=== PATIENT | female | born 1935 | race Caucasian/White ===

== ENCOUNTER 2017-10-30 09:07 | Day surgery (SDC) | payer MEDICARE, OTHER ==
[~2017-10-30 09:07] MED LIST: PHENYLEPHRINE HCL 10 % OPHTH. SOL 5ML OS
[2017-10-30] MEDS: PHENYLEPHRINE 2.5% OPHTH SOL 2ML OS (10:08)
[2017-10-30] MEDS: TROPICAMIDE 1% OPHTH SOLN 2ML OS (10:09)
[2017-10-30] MEDS: LIDOCAINE 3.5 % 1ML OPHTH TOPICAL GEL OU (10:09)
[2017-10-30] MEDS: CYCLOPENTOLATE 2% OPHTH SOLN 2ML BTL OS (10:09)
[2017-10-30] MEDS: OFLOXACIN 0.3 % (OCUFLOX) OPTH SOL 5ML OS (10:09)
[2017-10-30] MEDS: POVIDONE-IODINE 5% OPHTH PREP SOL 30ML As Ordered (11:14)
[2017-10-30] MEDS ORDERED: MIDAZOLAM INJ 2 MG/2 ML VIAL (J2250) As Ordered (11:19)
[2017-10-30] MEDS ORDERED: fentaNYL 100 MCG/2 ML INJECTION (J3010) As Ordered (11:19)
[2017-10-30] MEDS: LIDOCAINE 1% SDV 5 ML VIAL As Ordered (11:21)
[2017-10-30] MEDS: HEALON DUET (HEALON 10MG/ML 0.55ML & HEALON ENDOCOAT 30MG/ML 0.85ML) As Ordered (11:21)
[2017-10-30] MEDS: BSS with VANC/TOB/EPI for EYE CASES IR (11:21)
[2017-10-30] MEDS: MOXIFLOXACIN IN BSS 0.25MG/0.25ML INTRACAMERAL INJ (OR EYE ONLY)(J2280) As Ordered (11:22)
[2017-10-30] MEDS: TRIAMCINOLONE PRES FR 40 MG/ML 1ML(TRIESENCE)(OR EYE ONLY)(J3300 PER 1MG) As Ordered (11:22)
== END 2017-10-30 12:05 | disposition home or self-care (01) ==
LOC: M SDC 09:07
DX: H26.9 Unspecified cataract (principal); I10 Essential (primary) hypertension; J44.9 Chronic obstructive pulmonary disease, unspecified; K21.9 Gastro-esophageal reflux disease without esophagitis; Z79.899 Other long term (current) drug therapy; Z88.0 Allergy status to penicillin; Z88.2 Allergy status to sulfonamides
CPT/HCPCS: 66984

== ENCOUNTER → 2017-12-18 | Outpatient (CLI) | payer MEDICARE, OTHER | LOC: M SMT 09:24 | DX: J44.9 Chronic obstructive pulmonary disease, unspecified (principal) | CPT/HCPCS: 71046 ==

== ENCOUNTER → 2020-06-28 | Outpatient (CLI) | payer MEDICARE, OTHER ==
[~2020-06-28] MED LIST changes: +CARV3.12 PO; +E-Z-GAS II EFFERVESCENT PACKET (SODIUM BICARB./CITRIC ACID/SIMETHICONE) As Ordered ONE; +E-Z-HD 98% w/w 340GM SUSP BTL As Ordered ONE; +E-Z-PAQUE 96% w/w SUSP 176GM BTL As Ordered ONE; +FELO5TAB26 PO; +FLUT11IN PO; +FURO20TA2 PO; +MAGN400C2 PO; +OMEP40CA97 PO; -PHENYLEPHRINE HCL 10 % OPHTH. SOL 5ML OS; +POTA1TAB23 PO; +RANI300T PO; +SIMV20TA22 PO; +SPIR1CAP PO
--- NOTE | 2020-06-29 06:51 | REP ---
INDICATION: DYSPHAGIA. COMPARISON: None TECHNIQUE: This procedure was performed by Roma Sosa [facility], under the direct supervision of Dr. Melendez. Images were reviewed with Dr. Melendez prior to dictation. Liquid barium and gas producing crystals were given in the erect position, as well as liquid barium in the prone oblique position in order to perform a double contrast esophagram examination. FINDINGS: A single view PA chest x-ray is submitted as a .net architect film. The superior mediastinal structures are midline. The heart size is within normal limits. The lungs are clear. Ectatic aorta with vascular calcifications. The oral and pharyngeal stages of deglutition were unremarkable. Esophageal transport is prompt and efficient and there is no evidence of esophagitis, stricture, or mucosal ring. There is no evidence of a hiatal hernia. There was no gastroesophageal reflux noted . IMPRESSION: Unremarkable esophagram. 0.3 minutes of fluoroscopy time was utilized for this procedure. Some fluoroscopic images are performed with last image hold technology. These images require no additional radiation. <Electronically signed by Roma Sosa > 06/28/20 [id number] <Electronically signed by Brian Melendez > 06/29/20 [id number]
== END ==
LOC: M RAD 09:49
PROVIDERS: ATTEND Otolaryngology
DX: K21.9 Gastro-esophageal reflux disease without esophagitis (principal)

== ENCOUNTER → 2020-12-27 | Outpatient (CLI) | payer MEDICARE, OTHER ==
[~2020-12-27] MED LIST changes: -E-Z-GAS II EFFERVESCENT PACKET (SODIUM BICARB./CITRIC ACID/SIMETHICONE) As Ordered ONE; -E-Z-HD 98% w/w 340GM SUSP BTL As Ordered ONE; -E-Z-PAQUE 96% w/w SUSP 176GM BTL As Ordered ONE; +METO1TAB32 PO; +OMEP40CA4 PO; -OMEP40CA97 PO
== END ==
LOC: M LABSMTC 09:43
PROVIDERS: ATTEND Anesthesiology
DX: Z01.812 Encounter for preprocedural laboratory examination (principal); Z20.822 Contact with and (suspected) exposure to COVID-19

== ENCOUNTER 2020-12-31 10:54 | Day surgery (SDC) | payer MEDICARE, OTHER ==
[~2020-12-31] VITALS: Ht 157.5 cm; Wt 58.1 kg
[~2020-12-31 10:54] MED LIST changes: +NS 1,000 ML IV ONE
--- OUTSIDE RECORDS SUMMARY | 2020-12-31 11:01 | CCD | Continuity of Care Document ---
Author Author Frances HANCOCK M.D. Organization Unknown Address [address] [place] [address] Phone [phone] Care Team Providers Care Topline Beading Machine Tender Name Role Phone Ashwin Hancock M.D. AUTM [phone] Gastroenterology & Hepatology [facility] AUTM [phone] Neuro[facility] Schedule Resource Only AUTM [phone] [facility] Orthopedics AUTM [phone] [facility] AUTM [phone] [facility] ENT AUTM [phone] [facility] Gastroenterology AUTM [phone] Problems Active Problems Provider Date Diarrhea Ashwin Hancock MD Onset: 12/30/2020 Age-related osteoporosis without current pathological fracture Ashwin Hancock MD Onset: 11/02/2016 Adult health examination Ashwin Hancock MD Onset: 11/03/19 17 Chronic obstructive lung disease Ashwin Hancock MD Onset: 08/31/2016 Edema Ashwin Hancock MD Onset: 03/02/2016 Gastroesophageal reflux disease Ashwin Hancock MD Onset: 1 05/03/2015 Hyperlipidemia Ashwin Hancock MD Onset: 03/02/2016 Essential hypertension Ashwin Hancock MD Onset: 03/02/2016 Essential hypertension Onset: 09/13/2018 Social History Type Date Description Comments Sex Unknown Tobacco Use Start: Unknown End: Unknown Quit Tobacco Use Start: Unknown Never Smoked Cigars Tobacco Use Start: Unknown Never Smoked A Pipe Tobacco Use Start: Unknown Never Used Smokeless Tobacco ETOH Use Currently consumes alcohol 3 navjot es a week Tobacco Use Start: Unknown End: Unknown Patient is a former smoker Started: age 17 Quit: 1994 Recreational Drug Use Denies Drug Use Smoking Status Reviewed: 06/06/17 Patient is a former smoker St arted: age 17 Quit: 1994 Allergies and adverse reactions Active Allergies Criticality Reaction | Severity Comments Date NKFA Unable to assess criticality 05/31/2016 NKEA Unable to assess criticality 05/31/2016 Sulfa Antibiotics Unable to assess criticality 05/31/2016 Penicillin Unable to assess criticality 05/31/2016 Inactive Allergies NKDA Unable to assess criticality 05/31/2016 Medications Active Medications SIG Qnty Indications Ordering Provide r Date Metoprolol Succinate ER 25mg Tablets ER 24HR Take One Tablet By Mouth Every Day 90tabs I10 Ashwin Hancock MD 10/08/2018 Back Support/Dual Adjustment/Medium Misc use daily 1units S22.070D Ashwin Hancock MD 07/29/2018 Furosemide 20mg Tablets take one tablet by mouth every day 90tabs R60.9 Ashwin Hancock MD 05/31/2016 Proair HFA 108(90Base) mcg/Act Aer osol 1 puff q4 hrs prn. J44.9 Unknown J43.9 Flovent HFA 110mcg/Act Aerosol (Pulmonary) Unknown Felodipine ER 5mg Tablets ER 24HR Take One Tablet By Mouth Twice A Day 180tabs I10 Ashwin Hancock MD Omeprazole 40mg Capsules DR take one capsule by mouth every day 90caps K21.9 Ashwin Hancock MD 0 Medications Administered in Office Medication SIG Qnty Indications Ordering Provider Date Ketorolac (Toradol) Inj 30MG/ML Injection Ashwin Hancock MD 07/30/19 Ketorolac (Toradol) Inj 30MG/ML Injection Ashwin Hancock MD 07/23/19 Immunizations Description No Information Available Vital Signs Date Vital Result Comment 12/30/2020 8:59am BP Systolic 116 mmHg BP Diastolic 60 mmHg Heart Rate 82 /min Body Temperature 97.3 F Respiratory Rate 16 /min O2 % BldC Oximetry 94 % Weight 132.00 lb Weight 59.875 kg Height 64 inches 5'4" pt states BMI (Body Mass Index) 22.7 kg/m2 BSA (Body Surface Area) 1.64 m2 09/29/2020 9:23am BP Systolic 102 mmHg BP Diastolic 60 mmHg Heart Rate 72 /min Body Temperature 97.0 F Respiratory Rate 16 /min O2 % BldC Oximetry 97 % Weight 134.00 lb Weight 60.782 kg Height 64 inches 5'4" pt states BMI (Body Mass Index) 23.0 kg/m2 BSA (Body Surface Area) 1.65 m2 Results Test Acquired Date Facility Test Result H/L Range Note Coronavirus 2019 Nasopharygeal 12/27/2020 [facility] Coronavirus 2019 Nasopharygeal ASSAY INFORMATIO <SEE NOTE> 1 Laboratory test finding 08/26/2020 [facility] TSH Highly Sensitive 4.89 uIU/mL 0.47 - 5.01 2 T4 - Free 0.94 ng/dL 0.93 - 1.70 Comprehensive Metabolic Panel 08/26/2020 [facility] Comprehensive Metabo (SEE NOTE) 3 Sodium 138 mEq/L 134 - 153 Potassium 4.3 mEq/L 3.6 - 5.0 Chloride 102 mEq/L 98 - 107 Co2 26 mEq/L 22 - 30 Glucose 104 mg/dL High 70 - 99 BUN 10 mg/dL 7 - 21 Creatinine 0.6 mg/dL Low 0.7 - 1.5 BUN/Creat 17 8 - 27 Total Protein 7.6 g/dL 6.3 - 8.2 Albumin 4.7 g/dL 3.9 - 5.0 Globulin 2.9 GM/DL 2.4 - 3.2 A/G Ratio 1.6 0.8 - 2.0 Calcium 9.2 mg/dL 8.4 - 10.2 Total Bili <0.7 mg/dL 0.2 - 1.3 Alkaline Phos 86 U/L 38 - 126 Sgot/Ast 20 U/L 5 - 40 SGPT/Alt 17 U/L 7 - 56 Anion Gap 10.0 mmol/L 8.0 - 16.0 Age 85 yrs Non-Aa GFR >60 mL/min Afr Amer GFR >60 4 Cve Panel 08/26/2020 [facility] Cve Panel (SEE NOTE) 5 Cholesterol 199 mg/dL 131 - 200 Triglycerides 100 mg/dL 35 - 160 HDL 73 mg/dL 29 - 86 LDL 112 mg/dL 65 - 175 Risk Factor 2.7 Low 3.2 - 4.4 LDL/HDL 1.53 1.47 - 3.22 6 CBC W/Automated Diff 08/26/2020 [facility] CBC W/Automated Diff (SEE NOTE) 7 WBC 6.5 10^3/uL 4.2 - 11.0 RBC 5.13 10^6/uL 4.20 - 5.40 Hemoglobin 15.5 g/dL 12.0 - 16.0 Hematocrit 48.1 % High 37.0 - 47.0 MCV 93.8 fL 81.0 - 101 MCH 30.2 pg 27.0 - 34.0 MCHC 32.2 g/dL 31.0 - 36.0 RDW 14.7 % High 11.5 - 14.5 Platelets 292 10^3/uL 150 - 450 MPV 10.5 fL High 7.4 - 10.4 Neut 60.8 % 37.0 - 80.0 Lymph 24.1 % Low 25.0 - 40.0 Amador 10.6 % High 3.0 - 8.0 Eos 3.1 % 0.0 - 7.0 Baso 1.1 % 0.0 - 2.5 %Ig 0.3 % High 0.0 - 0.0 %NRBC 0.0 % 0.0 - 0.0 #Neut 3.96 10^3/uL 2.00 - 6.90 #Lymph 1.57 10^3/uL 0.60 - 3.40 #Amador 0.69 10^3/uL 0.00 - 0.90 #Eos 0.20 10^3/uL 0.00 - 0.70 #Baso 0.07 10^3/uL 0.00 - 0.20 #Ig 0.02 10^3/uL 0.00 - 0.10 #NRBC 0.00 10^3/uL 0.00 - 0.00 Manual Diff NOT INDICATED RBC Morph NOT INDICATED 1 ASSAY INFORMATION: Real Time RT-PCR NOTE: The COVID-19 assay has been cleared by the U.S. Food and Drug Administration under the Emergency Use Authorization (EUA). [facility] and [facility] are designated as high complexity laboratories by the Clinical Laboratory Improvement Amendments of 1988(CLIA) and are qualified to perform this test. Not Detected 2 Is patient fasting? N 3 COMPREHENSIVE METABOLIC PANE L 4 Male GFR Interprentation 20-49 yrs >60 mL/min Normal 50-59 yrs >56 mL/min Normal 60-69 yrs >49 mL/min Normal 70-79yrs >42 mL/min Normal 80 and above >35 mL/min Normal Female GFR Interpretation 20-39 yrs >60 mL/min Normal 40-49 yrs >58 mL/min Normal 50-59 yrs >51 mL/min Normal 60-69 yrs >45 mL/min Normal 70-79 yrs >39 mL/min Normal 80 and above >32 mL/min Normal 5 LIPID PANEL 6 CVE RISK CHOL/HDL LDL/HDL MEN: 1/2 AVERAGE 3.43 1.00 AVERAGE 4.97 3.55 2X AVERAGE 9.55 6.25 3X AVERAGE 23.99 7.99 WOMEN: 1/2 AVERAGE 3.27 1.47 AVERAGE 4.44 3.22 2X AVERAGE 7.05 5.03 3X AVERAGE 11.04 6.14 7 COMPLETE BLOOD COUNT Procedures Date Code Description Status 12/30/2020 86150 Preventive Visit Est > 65 Yrs Co mpleted 12/30/2020 75157 Brief Emotional/Beha v Assessment W/ Scoring Doc Per Standard Inst Completed 09/29/2020 83986 Office/Outpatient Established Lo w MDM 20-29 Min Completed 08/26/2020 72713 Office/Outpatient Established Lo w MDM 20-29 Min Completed Medical Devices Description No Information Available Encounters Type Date Location Provider Dx Diagnosis Office Visit 12/30/2020 9:00a [facility] Ashwin Hancock MD Z0 0.00 Encntr for general adult medical exam w/o abnormal findings I10 Essential (primary) hyperten ramon K21.9 Gastro-esophageal reflux dis ease without esophagitis E78.5 Hyperlipidemia, unspecified R19.7 Diarrhea, unspecified Assessments Date Code Description Provider 12/30/2020 Z00.00 Encounter for genera l adult medical examination without abnormal findings Ashwin Hancock MD 12/30/2020 I10 Essential (primary) hypertension Ashwin Hancock MD 12/30/2020 K21.9 Gastro-esophageal reflux disease without esophagitis Ashwin Hancock MD 12/30/2020 E78.5 Hyperlipidemia, unspecified Jimmy Hancock MD 12/30/2020 R19.7 Diarrhea, unspecified Ashwin Hancock MD 09/29/2020 R10.30 Lower abdominal pain, unspecifie d Ashwin Hancock MD 09/29/2020 R19.7 Diarrhea, unspecified Ashwin Hancock MD 09/29/2020 K21.9 Gastro-esophageal reflux disease without esophagitis Ashwin Hancock MD 08/26/2020 I10 Essential (primary) hypertension Ashwin Hancock MD 08/26/2020 K21.9 Gastro-esophageal reflux disease without esophagitis Ashwin Hancock MD 08/26/2020 R60.9 Edema, unspecified Ashwin galeano MD Plan of Treatment Future Appointment(s):* 06/30/2021 9:20 am [facility] - Ashwin Hancock MD* Z00.00 Encounter for general adult medical examination without abnormal findings* Follow up:* 6 months. * I10 Essential (primary) hypertension* New Labs:* Ua, Ordered: 12/30/20 * K21.9 Gastro-esophageal reflux disease without esophagitis * E78.5 Hyperlipidemia, unspecified * R19.7 Diarrhea, unspecified Functional Status Description No Information Available Mental Status Description No Information Available Referrals Refer to Dr Reason for Referral Status Appt Date [facility] Gastroenterology 85 y/o F with hx of chronic diarrhea, difficulty swallowing, acid reflux, and difficulty with bowel movement. Need diagnostic colonoscopy. Eval and treat. Sent [address] [place] [address] [phone] [facility] Gastroenterology 85 y/o F with hx of acid ref lux, difficulty swallowing and difficulty with bowel movement. Referred for upper endoscopy. Eval and treat. Patient Notified 12/01/2020 [address] [place] [address] [phone]
--- OUTSIDE RECORDS SUMMARY | 2020-12-31 11:01 | CCD | Continuity of Care Document ---
Author Author Frances CHURCH M.D. Organization Unknown Address [address] [place] [address], [address] [place] [address] Phone [phone] Care Team Providers Care Commercial Helicopter Pilot Name Role Phone Ashwin Myers M.D. 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 11 Social History Type Date Description Comments Sex Unknown ETOH Use 2-4/wk-Beer Tobacco Use Start: Unknown End: Unknown Patient is a former smoker quit 25 years ago Recreational Drug Use Denies Drug Use Smoking Status Reviewed: 03/16/20 Patient is a former smoker qu it 25 years ago Allergies, Adverse Reactions, Alerts Active Allergies Criticality Reaction | Severity Comments Date Penicillin Unable to assess criticality 04/13/2015 Sulfa Unable to assess criticality 04/13/2015 Medications Active Medications SIG Qnty Indications Ordering Provide r Date Clenpiq 10-3.5-12mg-GM -GM/160ML S olution follow pre-procedure instructions. start day before procedure. (if not covered by insurance please fill gavilyte script). 320ml R10.30 Chase Church M.D. 12/01/2020 Gavilyte-N With Flavor Pack 420gm Solution Rec drink the liquid as per the pre-procedur e instructions. ( fill this script only if clenpiq is not covered by insurance). 4000ml R10.30 Chase Church M.D. 12/01/[address] take 4 tablets together as per bowel preparation instructions. 4tabs R10.30 Chase Church M.D. 12/01/2020 Proair HFA 108(90Base) mcg/Act Aer osol 2 puffs four times a day as needed 8.500gm Guero Gonzales MD 10/07/2018 Spiriva Handihaler 18mcg Capsules Inhale The Contents Of One Capsule Via Handihaler By Mouth Every Morning 90caps Guero Gonzales MD 07/04/2010 Furosemide 20mg Tablets 1tab qd Unknown Felodipine ER 5mg Tablets ER 24HR 1tab bid Unknown Flovent HFA 110mcg/Act Aerosol 2 puffs twice a day 36gm Guero Gonzales MD Metoprolol Succinate ER 25mg Tablets ER 24HR 1tab qd Unknown Omeprazole 40mg Capsules DR 1 cap qd Unknown History Medications Mucinex 600mg Tablets ER 12HR 1 by mouth twice a day 60tabs Rolando Olguin MD 06/21/2020 - Immunizations CPT Code Status Date Vaccine Lot # [id number] Refused 08/29/2010 Pneumococcal PPSV23 79434 Refused 08/29/2010 Influenza Virus Split 3 Yrs And Above For Intramuscular Use Vital Signs Date Vital Result Comment 12/01/2020 10:13am BP Systolic 114 mmHg BP Diastolic 66 mmHg Height 62 inches 5'2" Weight 133.00 lb BMI (Body Mass Index) 24.3 kg/m2 [place] Body Weight 110 lb Weight 60.329 kg BSA (Body Surface Area) 1.61 m2 09/21/2020 11:30am BP Systolic 122 mmHg BP Diastolic 82 mmHg Heart Rate 71 /min O2 % BldC Oximetry 96 % Room Air Height 61.5 inches 5'1.50" Weight 134.00 lb BMI (Body Mass Index) 24.9 kg/m2 [place] Body Weight 105 lb Weight 60.782 kg BSA (Body Surface Area) 1.60 m2 Results Description No Information Available Procedures Date Code Description Status 12/01/2020 55457 Office/Outpatient New Moderate M DM 45-59 Minutes Completed 09/21/2020 61378 Office/Outpatient Established Mo d MDM 30-39 Min Completed 09/21/2020 32805 Spirometry Completed 2020 26313 Office/Outpatient Established Lo w MDM 20-29 Min Completed 06/21/2020 49060 Office/Outpatient Established Lo w MDM 20-29 Min Completed Medical Devices Description No Information Available Encounters Type Date Location Provider Dx Diagnosis Office Visit 12/01/2020 9:10a [facility] Chase Church M.D. R10.30 Lower abdominal pain, unspec ified R19.4 Change in bowel habit R13.10 Dysphagia, unspecified Office Visit 09/21/2020 11:30a [facility]acic Lawrenc amrita Gonzales MD J44.9 Chronic obstructive pulmonary disease, u nspecified R91.8 Other nonspecific abnormal f inding of lung field Z87.891 Personal history of nicotine dependence Office Visit 2020 2:30p [facility] Rolando Olguin MD K21.9 Gastro-esophageal reflux disease without esophagitis J04.0 Acute laryngitis Office Visit 06/21/2020 9:50a [facility] Rolando Olguin MD K21.9 Gastro-esophageal reflux disease without esophagitis Assessments Date Code Description Provider 12/01/2020 R10.30 Lower abdominal pain, unspecifie d Chase Church M.D. 12/01/2020 R19.4 Change in bowel habit Chase Church M.D. 12/01/2020 R13.10 Dysphagia, unspecified Chase Church M.D. 09/21/2020 J44.9 Chronic obstructive pulmonary di sease, unspecified Guero Gonzales MD 09/21/2020 R91.8 Other nonspecific abnormal findi ng of lung field Guero Gonzales MD 09/21/2020 Z87.891 Personal history of nicotine dep endence Guero Gonzales MD 2020 K21.9 Gastro-esophageal reflux disease without esophagitis Rolando Olguin MD 2020 J04.0 Acute laryngitis Rolando Olguin MD 06/21/2020 K21.9 Gastro-esophageal reflux disease without esophagitis Rolando Olguin MD Plan of Treatment Future Appointment(s):* 01/25/2021 11:15 am - Guero Gonzales MD at [facility]monary[facility]Thoracic Functional Status Description No Information Available Mental Status Description No Information Available Referrals Refer to Reason for Referral Status Appt Date Chase Church M.D. GERD DYSPHAGIA CONSTIPATION Schedule d 12/01/2020 [facility] [address], [address] [place] [address] [phone]
--- OUTSIDE RECORDS SUMMARY | 2020-12-31 11:01 | CCD | Continuity of Care Document ---
Author Author Frances CHURCH M.D. Organization Unknown Address [address] [place] [address], [address] [place] [address] Phone [phone] Care Team Providers Care Bacon Slicer Name Role Phone Ashwin Myers M.D. AUTM [phone] AUTM Unavailable Problems Active Problems Provider Date [...] CPT Code Status Date Vaccine Lot # [id number] Refused 08/29/2010 Pneumococcal PPSV23 30080 Refused 08/29/2010 Influenza Virus Split 3 Yrs And Above For Intramuscular Use Vital Signs Date Vital Result Comment 09/21/2020 11:30am BP Systolic 122 mmHg BP Diastolic 82 mmHg Heart Rate 71 /min O2 % BldC Oximetry 96 % Room Air Height 61.5 inches 5'1.50" Weight 134.00 lb BMI (Body Mass Index) 24.9 kg/m2 [place] Body Weight 105 lb Weight 60.782 kg BSA (Body Surface Area) 1.60 m2 2020 2:27pm Height 61.5 inches 5'1.50" Weight 136.00 lb BMI (Body Mass Index) 25.3 kg/m2 [place] Body Weight 105 lb Weight 61.690 kg BSA (Body Surface Area) 1.61 m2 Results Description No Information Available Procedures Date Code Description Status 09/21/2020 04252 Office/Outpatient Established Mo d MDM 30-39 Min Completed 09/21/2020 76048 Spirometry Completed 2020 31109 Office/Outpatient Established Lo w MDM 20-29 Min Completed 06/21/2020 86155 Office/Outpatient Established Lo w MDM 20-29 Min Completed Medical Devices Description No Information Available Encounters Type Date Location Provider Dx Diagnosis Office Visit 09/21/2020 11:30a [facility] Lawrenc amrita Gonzales MD J44.9 Chronic obstructive pulmonary disease, u nspecified R91.8 Other nonspecific abnormal f inding of lung field Z87.891 Personal history of nicotine dependence Office Visit 2020 2:30p [facility] Rolando Olguin MD K21.9 Gastro-esophageal reflux disease without esophagitis J04.0 Acute laryngitis Office Visit 06/21/2020 9:50a [facility] Rolando Olguin MD K21.9 Gastro-esophageal [...] - Guero Gonzales MD at [facility]acic 12/01/2020 - Chase Church M.D.* R10.30 Lower abdominal pain, unspecified * R19.4 Change in bowel habit * R13.10 Dysphagia, unspecified * * New Medication:* Clenpiq 10-3.5-12 mg-GM -GM/160ML * Gavilyte-N With Flavor Pack 420 gm * Dulcolax 5 mg * New Orders:* Colonoscopy, Ordered: 12/01/20 * Comments:* Impression:-- Change in bowel habits with prior episodes of severe constipation and currently diarrhea with urge, Lower abdominal pain with palpation, no rectal bleeding - DDx - Diverticular disease vs need to r/o Colon polyps vs less likely colon mass.-- Dysphagia with poor dentition and mastication -- Likely related to dental issue-- but in view of prior esophagogram showing reflux--will need further work up. * Recommendations:* -- Educated patient on prior test results and all possible differential diagnoses. All questions answered. -- In view of prior severe constipaiton episode and snesation of incomplete bowel movements-- will continue the miralax for now.. -- Will schedule for diagnostic EGD and colonoscopy. The procedures, indications, risks (bleeding, perforation, infection, hypotension, respiratory depression, allergy, need for endotracheal intubation, surgery, colostomy, cardiac arrest, even ), benefits, limitations (e.g., missing a lesion), and all other alternatives (including no intervention) were explained to the patient who understood and agreed for the procedures. -- Bowel preparation instrucitons and precautions educated to patient. -- Return to GI clinic 2 weeks post procedures. -- Follow up with PMD for routine medical care and other age appropriate health maintenance.. Functional Status Description No Information Available Mental Status Description No Information Available Referrals Refer to Reason for Referral Status Appt Date Chase Church M.D. GERD DYSPHAGIA CONSTIPATION Schedule d 12/01/2020 [facility] [address], [address] [place] [address] [phone]
--- OUTSIDE RECORDS SUMMARY | 2020-12-31 11:01 | CCD | Continuity of Care Document ---
Author Author Frances MYERS M.D. Organization Unknown Address [address] [place] [id number] Phone [phone] Care Team Providers Care Shop Teacher Name Role Phone Ashwin Myers M.D. AUTM [phone] Gastroenterology & Hepatology [facility] AUTM [phone] Neuro[facility] Schedule Resource Only AUTM [phone] [facility] Orth[facility] AUTM [facility] AUTM [facility] ENT AUTM [phone] [facility] Gastroenterology AUTM [phone] Problems Active Problems Provider Date Age-related osteoporosis without current pathological fracture Ashwin Myers MD Onset: 11/02/2016 Adult health examination Ashwin Myers MD Onset: 11/03/19 17 Chronic obstructive lung disease Ashwin Myers MD Onset: 08/31/2016 Edema Ashwin Myers MD Onset: 03/02/2016 Gastroesophageal reflux disease Ashwin Myers MD Onset: 1 05/03/2015 Hyperlipidemia Ashwin Myers MD Onset: 03/02/2016 Essential hypertension Ashwin Myers MD Onset: 03/02/2016 Essential hypertension Onset: 09/13/2018 [...] By Mouth Every Day 90tabs I10 Ashwin Myers MD 10/08/2018 Back Support/Dual Adjustment/Medium Misc use daily 1units S22.070D Ashwin Myers MD 07/29/2018 Furosemide 20mg Tablets take one tablet by mouth every day 90tabs R60.9 Ashwin Myers MD 05/31/2016 Proair HFA 108(90Base) mcg/Act Aer osol 1 puff q4 hrs prn. J44.9 Unknown J43.9 Flovent HFA 110mcg/Act Aerosol (Pulmonary) Unknown Felodipine ER 5mg Tablets ER 24HR Take One Tablet By Mouth Twice A Day 180tabs I10 Ashwin Myers MD Omeprazole 40mg Capsules DR take one capsule by mouth every day 90caps K21.9 Ashwin Myers MD 0 Medications Administered in Office Medication SIG Qnty Indications Ordering Provider Date Ketorolac (Toradol) Inj 30MG/ML Injection Ashwin Myers MD 07/30/19 19 Ketorolac (Toradol) Inj 30MG/ML Injection Ashwin Myers MD 07/23/19 19 Immunizations Description No Information Available Vital Signs Date Vital Result Comment 09/29/2020 9:23am BP Systolic 102 mmHg BP Diastolic 60 mmHg Heart Rate 72 /min Body Temperature 97.0 F Respiratory Rate 16 /min O2 % BldC Oximetry 97 % Weight 134.00 lb Weight 60.782 kg Height 64 inches 5'4" pt states BMI (Body Mass Index) 23.0 kg/m2 BSA (Body Surface Area) 1.65 m2 08/26/2020 10:05am BP Systolic 120 mmHg BP Diastolic 70 mmHg Heart Rate 77 /min Body Temperature 98.2 F Respiratory Rate 16 /min O2 % BldC Oximetry 97 % Weight 134.00 lb Weight 60.782 kg Height 64 inches 5'4" pt states BMI (Body Mass Index) 23.0 kg/m2 BSA (Body Surface Area) 1.65 m2 Results Test Acquired Date Facility Test Result H/L Range Note Coronavirus 2019 Nasopharygeal 12/27/2020 [facility] Coronavirus 2019 Nasopharygeal ASSAY INFORMATIO <SEE NOTE> 1 Laboratory test finding 08/26/2020 [facility] TSH Highly Sensitive 4.89 uIU/mL 0.47 - 5.01 2 T4 - Free 0.94 ng/dL 0.93 - 1.70 Comprehensive Metabolic Panel 08/26/2020 [facility] ospital Comprehensive Metabo (SEE NOTE) 3 Sodium [...] Amer GFR >60 4 Cve Panel 08/26/2020 [facility] Cve Panel (SEE NOTE) 5 Cholesterol 199 mg/dL 131 - 200 Triglycerides 100 mg/dL 35 - 160 HDL 73 mg/dL 29 - 86 LDL 112 mg/dL 65 - 175 Risk Factor 2.7 Low 3.2 - 4.4 LDL/HDL 1.53 1.47 - 3.22 6 CBC W/Automated Diff 08/26/2020 [facility] CBC W/Automated Diff (SEE NOTE) 7 [...] Lymph 24.1 % Low 25.0 - 40.0 Marin 10.6 % High 3.0 - 8.0 Eos 3.1 % 0.0 - 7.0 Baso 1.1 % 0.0 - 2.5 %Ig 0.3 % High 0.0 - 0.0 %NRBC 0.0 % 0.0 - 0.0 #Neut 3.96 10^3/uL 2.00 - 6.90 #Lymph 1.57 10^3/uL 0.60 - 3.40 #Marin 0.69 10^3/uL 0.00 - 0.90 #Eos 0.20 10^3/uL 0.00 - 0.70 #Baso 0.07 10^3/uL 0.00 - 0.20 #Ig 0.02 10^3/uL 0.00 - 0.10 #NRBC 0.00 10^3/uL 0.00 - 0.00 Manual Diff NOT INDICATED RBC Morph NOT INDICATED 1 ASSAY INFORMATION: Real Time RT-PCR NOTE: The COVID-19 assay has been cleared by the U.S. Food and Drug Administration under the Emergency Use Authorization (EUA). [employer] and [employer] are designated as high complexity laboratories by [...] BLOOD COUNT Procedures Date Code Description Status 09/29/2020 18876 Office/Outpatient Established Lo w MDM 20-29 Min Completed 08/26/2020 09679 Office/Outpatient Established Lo w MDM 20-29 Min Completed Medical Devices Description No Information Available Encounters Description No Information Available Assessments Date Code Description Provider 09/29/2020 R10.30 Lower abdominal pain, unspecifie d Ashwin Myers MD 09/29/2020 R19.7 Diarrhea, unspecified Ashwin Myers MD 09/29/2020 K21.9 Gastro-esophageal reflux disease without esophagitis Ashwin Myers MD 08/26/2020 I10 Essential (primary) hypertension Ashwin Myers MD 08/26/2020 K21.9 Gastro-esophageal reflux disease without esophagitis Ashwin Myers MD 08/26/2020 R60.9 Edema, unspecified Ashwin galeano MD Plan of Treatment Future Appointment(s):* 12/30/2020 9:00 am - Ashwin Myers MD at [facility] 09/29/2020 - Ashwin Myers MD* R10.30 Lower abdominal pain, unspecified* Comments:* Ordered CT scan of the abdomen and pelvis for further evaluation. We will refer her to Dr. Christianson for need for EGD and Colonoscopy. * Referral:* [facility] Gastroenterology, * Follow up:* 3 months. will call her with CT results * R19.7 Diarrhea, unspecified* Comments:* Treatment plans as above. * K21.9 Gastro-esophageal reflux disease without esophagitis* Comments:* Treatment plan as above and continue with PPI. Functional Status Description No Information Available Mental Status Description No Information Available Referrals Refer to Reason for Referral Status Appt Date [facility] Gastroenterology 85 y/o F with hx of chronic diarrhea, difficulty swallowing, acid reflux, and difficulty with bowel movement. Need diagnostic colonoscopy. Eval and treat. Sent [address] [place] [address] [phone] [facility] Gastroenterology 85 y/o F with hx of acid ref lux, difficulty swallowing and difficulty with bowel movement. Referred for upper endoscopy. Eval and treat. Patient Notified 12/01/2020 [address], [place] [id number] [phone]
[2020-12-31] MEDS ORDERED: propofoL 500 MG/50 ML VIAL As Ordered ONE (11:04)
[2020-12-31] MEDS ORDERED: LIDOCAINE 2% 100MG/5ML SDV (FOR ANES.) As Ordered ONE (11:04)
[2020-12-31] MEDS ORDERED: fentaNYL 100 MCG/2 ML INJECTION (J3010) As Ordered ONE (11:05)
[2020-12-31] MEDS ORDERED: ePHEDrine SULFATE 25 MG/5 ML(5MG/ML) SYRINGE As Ordered ONE (12:46)
--- NOTE | 2020-12-31 13:14 | ROOR ---
Patient Name: Frances Mittal Procedure Date: 12/31/2020 12:08 PM Date of : 1935 Age: 85 Room: [facility] Gender: Female Note Status: Finalized Procedure: Upper GI endoscopy Indications: Dysphagia, Heartburn Providers: Chase Christianson MD Referring MD: JONI HANCOCK MD Requesting Provider: Medicines: Monitored Anesthesia Care Complications: No immediate complications. Procedure: Pre-Anesthesia Assessment: - Prior to the procedure, a History and Physical was performed, and patient medications and allergies were reviewed. The patient is competent. The risks and benefits of the procedure and the sedation options and risks were discussed with the patient. All questions were answered and informed consent was obtained. Patient identification and proposed procedure were verified by the physician, the nurse and the anesthesiologist in the procedure room. Mental Status Examination: alert and oriented. Airway Examination: normal oropharyngeal airway and neck mobility. Respiratory Examination: clear to auscultation. CV Examination: normal. Prophylactic Antibiotics: The patient does not require prophylactic antibiotics. Prior Anticoagulants: The patient has taken no previous anticoagulant or antiplatelet agents. ASA Grade Assessment: II - A patient with mild systemic disease. After reviewing the risks and benefits, the patient was deemed in satisfactory condition to undergo the procedure. The anesthesia plan was to use monitored anesthesia care (MAC). Immediately prior to administration of medications, the patient was re-assessed for adequacy to receive sedatives. The heart rate, respiratory rate, oxygen saturations, blood pressure, adequacy of pulmonary ventilation, and response to care were monitored throughout the procedure. The physical status of the patient was re-assessed after the procedure. The Endoscope was introduced through the mouth, and advanced to the second part of duodenum. The upper GI endoscopy was accomplished without difficulty. The patient tolerated the procedure well. Findings: LA Grade A (one or more mucosal breaks less than 5 mm, not extending between tops of 2 mucosal folds) esophagitis with no bleeding was found in the distal esophagus. Biopsies were taken with a cold forceps for histology. Verification of patient identification for the specimen was done by the physician and nurse using the patient's name, date and medical record number. Estimated blood loss was minimal. Scattered mild inflammation characterized by erythema and granularity was found in the gastric antrum. Biopsies were taken with a cold forceps for Helicobacter pylori testing. The duodenal bulb, second portion of the duodenum and third portion of the duodenum were normal. Impression: - LA Grade A reflux esophagitis. Rule out Juan's esophagus. Biopsied. - Gastritis. Biopsied. - Normal duodenal bulb, second portion of the duodenum and third portion of the duodenum. Recommendation: - Patient has a contact number available for emergencies. The signs and symptoms of potential delayed complications were discussed with the patient. Return to normal activities tomorrow. Written discharge instructions were provided to the patient. - Chopped diet, mechanical soft diet and high fiber diet. - Continue present medications. - Await pathology results. - Follow an antireflux regimen. - Telephone GI clinic for pathology results in 2 weeks. - Return to GI clinic if persistent symptoms or new symptoms. - Return to primary care physician. Procedure Code(s): --- Professional --- 14301, Esophagogastroduodenoscopy, flexible, transoral; with biopsy, single or multiple Diagnosis Code(s): --- Professional --- K21.0, Gastro-esophageal reflux disease with esophagitis K29.70, Gastritis, unspecified, without bleeding R13.10, Dysphagia, unspecified R12, Heartburn CPT copyright 2019 [employer]. All rights reserved. The codes documented in this report are preliminary and upon clutch specialist review may be revised to meet current compliance requirements. Chase Christianson MD Chase Christianson MD 12/31/2020 1:13:59 PM Electronically signed by Chase Christianson MD Number of Addenda: 0 Note Initiated On: 12/31/2020 12:08 PM Estimated Blood Loss: Estimated blood loss was minimal.
--- NOTE | 2020-12-31 13:17 | ROOR ---
Patient Name: Frances Mittal Procedure Date: 12/31/2020 12:08 PM Date of : 1935 Age: 85 Room: [facility] Gender: Female Note Status: Finalized Procedure: Colonoscopy Indications: Change in bowel habits Providers: Chase Christianson MD Referring MD: JONI HANCOCK MD Requesting Provider: Medicines: Monitored Anesthesia Care Complications: No immediate complications. Procedure: Pre-Anesthesia Assessment: - Prior to the procedure, a History and Physical was performed, and patient medications and allergies were reviewed. The patient is competent. The risks and benefits of the procedure and the sedation options and risks were discussed with the patient. All questions were answered and informed consent was obtained. Patient identification and proposed procedure were verified by the physician, the nurse and the anesthesiologist in the procedure room. Mental Status Examination: alert and oriented. Airway Examination: normal oropharyngeal airway and neck mobility. Respiratory Examination: clear to auscultation. CV Examination: normal. Prophylactic Antibiotics: The patient does not require prophylactic antibiotics. Prior Anticoagulants: The patient has taken no previous anticoagulant or antiplatelet agents. ASA Grade Assessment: III - A patient with severe systemic disease. After reviewing the risks and benefits, the patient was deemed in satisfactory condition to undergo the procedure. The anesthesia plan was to use monitored anesthesia care (MAC). Immediately prior to administration of medications, the patient was re-assessed for adequacy to receive sedatives. The heart rate, respiratory rate, oxygen saturations, blood pressure, adequacy of pulmonary ventilation, and response to care were monitored throughout the procedure. The physical status of the patient was re-assessed after the procedure. The Colonoscope was introduced through the anus and advanced to the terminal ileum, with identification of the appendiceal orifice and IC valve. The colonoscopy was performed without difficulty. The patient tolerated the procedure well. The quality of the bowel preparation was good. The terminal ileum, ileocecal valve, appendiceal orifice, and rectum were photographed. Scope insertion time was 5 minutes. Scope withdrawal time was 8 minutes. The total duration of the procedure was 18 minutes. Findings: The perianal and digital rectal examinations were normal. The terminal ileum appeared normal. The sigmoid colon was significantly tortuous. Advancing the scope required withdrawing the scope and replacing with the enteroscope. Two sessile polyps were found in the recto-sigmoid colon and ascending colon. The polyps were 3 to 5 mm in size. These polyps were removed with a cold biopsy forceps. Resection and retrieval were complete. Verification of patient identification for the specimen was done by the physician and nurse using the patient's name, date and medical record number. Estimated blood loss was minimal. Multiple small and large-mouthed diverticula were found in the sigmoid colon. There was narrowing of the colon in association with the diverticular opening. There was evidence of diverticular spasm. There was no evidence of diverticular bleeding. Non-bleeding external and internal hemorrhoids were found during retroflexion. The hemorrhoids were medium-sized. Impression: - The examined portion of the ileum was normal. - Tortuous colon. - Two 3 to 5 mm polyps at the recto-sigmoid colon and in the ascending colon, removed with a cold biopsy forceps. Resected and retrieved. - Severe diverticulosis in the sigmoid colon. There was narrowing of the colon in association with the diverticular opening. There was evidence of diverticular spasm. There was no evidence of diverticular bleeding. - Non-bleeding external and internal hemorrhoids. Recommendation: - Patient has a contact number available for emergencies. The signs and symptoms of potential delayed complications were discussed with the patient. Return to normal activities tomorrow. Written discharge instructions were provided to the patient. - Chopped diet, mechanical soft diet and high fiber diet. - Continue present medications. - Use fiber, for example Citrucel, Fibercon, Konsyl or Metamucil. - Miralax 1 capful (17 grams) in 8 ounces of water PO BID for atleast 7 days and then adjust dose to have one to two soft bowel movements daily. - Await pathology results. - Repeat colonoscopy is not recommended due to current age (66 years or older) for surveillance based on pathology results. - Return to GI clinic if persistent symptoms or new symptoms. - Return to primary care physician. Procedure Code(s): --- Professional --- 46458, Colonoscopy, flexible; with biopsy, single or multiple Diagnosis Code(s): --- Professional --- K64.8, Other hemorrhoids K63.5, Polyp of colon R19.4, Change in bowel habit K57.30, Diverticulosis of large intestine without perforation or abscess without bleeding Q43.8, Other specified congenital malformations of intestine CPT copyright 2019 [employer]. All rights reserved. The codes documented in this report are preliminary and upon archery equipment hay sorter review may be revised to meet current compliance requirements. Chase Christianson MD Chase Christianson MD 12/31/2020 1:17:46 PM Electronically signed by Chase Christianson MD Number of Addenda: 0 Note Initiated On: 12/31/2020 12:08 PM Estimated Blood Loss: Estimated blood loss was minimal.
[2020-12-31 13:29] VITALS: BP 115/63
== END 2020-12-31 13:35 | disposition home or self-care (01) ==
LOC: M OPP 10:54
PROVIDERS: ATTEND Internal Medicine Gastroenterology
DX: K63.5 Polyp of colon (principal); K57.30 Diverticulosis of large intestine without perforation or abscess without bleeding; K64.8 Other hemorrhoids; Q43.3 Congenital malformations of intestinal fixation; R19.4 Change in bowel habit; K21.00 Gastro-esophageal reflux disease with esophagitis, without bleeding; K29.70 Gastritis, unspecified, without bleeding; R13.10 Dysphagia, unspecified; R12 Heartburn; Z79.899 Other long term (current) drug therapy; Z88.0 Allergy status to penicillin; Z88.2 Allergy status to sulfonamides; Z80.0 Family history of malignant neoplasm of digestive organs
CPT/HCPCS: 43239; 45380; 88305; J3010

== ENCOUNTER → 2022-06-01 | Outpatient (CLI) | payer MEDICARE ==
[~2022-06-01] MED LIST changes: -NS 1,000 ML IV ONE
[2022-06-01 15:40] LABS: RHEUMATOID FACTOR QUANT 8.3 IU/ML (<14)
[2022-06-01 15:44] LABS: FOLATE 16.6 NG/ML (>5.4)
[2022-06-01 15:45] LABS: FREE THYROXINE INDEX 3.1 % (1.3-4.8); T UPTAKE 32.8 % (22.5-37.0); THYROXINE (T4) 9.5 UG/DL (4.5-10.9); VITAMIN B12 LEVEL 276 PG/ML (211-911)
[2022-06-01 15:46] LABS: THYROID STIMULATING HORMONE 5.456 uIU/ML (0.55-4.78)
== END ==
LOC: M PLALAB 10:46
PROVIDERS: ATTEND Psychiatry & Neurology Neurology
DX: F03.90 Unspecified dementia, unspecified severity, without behavioral disturbance, psychotic disturbance, mood disturbance, and anxiety (principal); R41.3 Other amnesia; D51.9 Vitamin B12 deficiency anemia, unspecified

== ENCOUNTER → 2022-09-20 | Outpatient (CLI) | payer MEDICARE, MEDICAID ==
[~2022-09-20] MED LIST changes: -FLUT11IN PO; +FLUT12AE6 PO
[2022-09-20 15:57] LABS: FREE T4 1.14 NG/DL (0.89-1.76); THYROID STIMULATING HORMONE 3.154 uIU/ML (0.55-4.78)
== END ==
LOC: M RAD 13:32
PROVIDERS: ATTEND Student in an Organized Health Care Education/Training Program
DX: R10.31 Right lower quadrant pain (principal); M25.562 Pain in left knee; E03.9 Hypothyroidism, unspecified

== ENCOUNTER → 2022-10-03 | Outpatient (REF) | payer MEDICARE, MEDICAID, OTHER ==
[2022-10-04 10:33] LABS: BASO # 0.1 10^3/uL (0.0-0.2); EOS # 0.2 10^3/uL (0.0-0.5); EOS % 2.3 % (0.0-3.0); HEMATOCRIT 45.7 % (36.0-47.0); HEMOGLOBIN 14.5 g/dl (12.0-15.5); LYMPH # 2.3 10^3/uL (1.5-5.0); LYMPH % 26.1 % (24.0-44.0); MEAN CORPUSCULAR HEMOGLOBIN 28.9 pg (27.0-33.0); MEAN CORPUSCULAR HGB CONC 31.7 g/dl (32.0-36.5); MEAN CORPUSCULAR VOLUME 91.2 fl (80.0-96.0); MONO # 0.9 10^3/uL (0.0-0.8); NEUTROPHILS # 5.2 10^3/uL (1.5-8.5); NEUTROPHILS % 60.4 % (36.0-66.0); PLATELET COUNT, AUTOMATED 237 10^3/uL (150-450); RED BLOOD COUNT 5.01 10^6/uL (4.00-5.40); WHITE BLOOD COUNT 8.6 10^3/uL (4.0-10.0)
[2022-10-04 11:05] LABS: TOTAL 25(OH) VITAMIN D 16.7 NG/ML (20.0-100.0)
[2022-10-04 11:07] LABS: ALBUMIN 4.1 G/DL (3.2-5.2); ALKALINE PHOSPHATASE 57 U/L (46-116); ALT/SGPT 12 U/L (7.0-40); AST/SGOT 9 U/L (<34); BILIRUBIN,TOTAL 0.6 MG/DL (0.3-1.2); BLOOD UREA NITROGEN 12 MG/DL (9-23); CALCIUM LEVEL 8.8 MG/DL (8.3-10.6); CARBON DIOXIDE LEVEL 28 MMOL/L (20-31); CHLORIDE LEVEL 105 MMOL/L (98-107); CREATININE FOR GFR 0.75 MG/DL (0.55-1.30); GLOMERULAR FILTRATION RATE > 60.0 (>32); GLUCOSE, FASTING 84 MG/DL (74-106); POTASSIUM SERUM 5.5 MMOL/L (3.5-5.1); SODIUM LEVEL 140 MMOL/L (136-145); TOTAL PROTEIN 7.2 G/DL (5.7-8.2)
== END ==
LOC: M SFHCPLAZ 09:57
PROVIDERS: ATTEND Student in an Organized Health Care Education/Training Program
DX: Z00.00 Encounter for general adult medical examination without abnormal findings (principal); Z79.899 Other long term (current) drug therapy

== ENCOUNTER → 2022-11-07 | Outpatient (REF) | payer MEDICARE, OTHER, MEDICAID | LOC: M SFHCPLAZ 14:45 | PROVIDERS: ATTEND Student in an Organized Health Care Education/Training Program | DX: Z53.9 Procedure and treatment not carried out, unspecified reason (principal) ==

== ENCOUNTER → 2022-11-10 | Outpatient (CLI) | payer MEDICARE, OTHER, MEDICAID | LOC: M PLALAB 11:24 | PROVIDERS: ATTEND Student in an Organized Health Care Education/Training Program | DX: Z11.1 Encounter for screening for respiratory tuberculosis (principal) ==

== ENCOUNTER 2023-03-19 17:41 | Inpatient (IN) | payer MEDICARE, MEDICAID ==
[~2023-03-19] VITALS: Ht 152.4 cm; Wt 53.3 kg
[2023-03-19 19:27] LABS: BASO # 0.1 10^3/uL (0.0-0.2); BASO % 0.7 % (0.0-1.0); EOS % 0.4 % (0.0-3.0); HEMATOCRIT 45.7 % (36.0-47.0); HEMOGLOBIN 14.5 g/dl (12.0-15.5); LYMPH # 1.8 10^3/uL (1.5-5.0); LYMPH % 23.8 % (24.0-44.0); MEAN CORPUSCULAR HEMOGLOBIN 29.3 pg (27.0-33.0); MEAN CORPUSCULAR HGB CONC 31.7 g/dl (32.0-36.5); MEAN CORPUSCULAR VOLUME 92.3 fl (80.0-96.0); MONO # 1.3 10^3/uL (0.0-0.8); NEUTROPHILS # 4.2 10^3/uL (1.5-8.5); NEUTROPHILS % 56.8 % (36.0-66.0); PLATELET COUNT, AUTOMATED 174 10^3/uL (150-450); RED BLOOD COUNT 4.95 10^6/uL (4.00-5.40); WHITE BLOOD COUNT 7.3 10^3/uL (4.0-10.0)
[2023-03-19 19:49] LABS: LIPASE 31 U/L (12-53)
[2023-03-19 19:51] LABS: ALBUMIN 3.6 G/DL (3.2-5.2); ALKALINE PHOSPHATASE 59 U/L (46-116); ALT/SGPT 18 U/L (7.0-40); AST/SGOT 21 U/L (<34); BILIRUBIN,DIRECT 0.2 MG/DL (<0.4); BILIRUBIN,TOTAL 0.5 MG/DL (0.3-1.2); BLOOD UREA NITROGEN 29 MG/DL (9-23); CALCIUM LEVEL 8.7 MG/DL (8.3-10.6); CARBON DIOXIDE LEVEL 27 MMOL/L (20-31); CHLORIDE LEVEL 101 MMOL/L (98-107); CREATININE FOR GFR 0.89 MG/DL (0.55-1.30); GLOMERULAR FILTRATION RATE > 60.0 (>32); GLUCOSE, FASTING 84 MG/DL (74-106); POTASSIUM SERUM 3.9 MMOL/L (3.5-5.1); SODIUM LEVEL 136 MMOL/L (136-145); TOTAL PROTEIN 6.7 G/DL (5.7-8.2)
[2023-03-19] MEDS ORDERED: NS 500 ML IV ONE (20:10)
[2023-03-19] MEDS: ACETAMINOPHEN 500 MG TAB PO SCH (21:00)
[2023-03-19] MEDS ORDERED: VITA200032 PO (23:42)
[2023-03-19] MEDS ORDERED: FLUT12AE6 INH (23:42)
[2023-03-19] MEDS ORDERED: ACET-897 PO (23:42)
[2023-03-19] MEDS ORDERED: DOXY100C3 PO (23:42)
[2023-03-19] MEDS ORDERED: FLON1SPR NARES (23:42)
[2023-03-19] MEDS ORDERED: HOME MED LIST COMPLETE! XX SCH (23:45)
[2023-03-20] VITALS (9 sets, daily range): BP systolic 116–166; BP diastolic 49–79; TEMP 96.5–98.1; O2SAT 90–95
[2023-03-20] MEDS: NS 1,000 ML IV SCH ×2 (01:00→13:10)
[2023-03-20] MEDS ORDERED: REMDESIVIR 200 MG in NS 250 ML IV ONE (03:00)
[2023-03-20 06:50] LABS: BILIRUBIN,DIRECT 0.2 MG/DL (<0.4); BILIRUBIN,TOTAL 0.4 MG/DL (0.3-1.2); TOTAL PROTEIN 5.6 G/DL (5.7-8.2)
[2023-03-20] MEDS: ENOXAPARIN 40MG/0.4ML SYRINGE (J1650 PER 10MG) SC SCH (08:41)
[2023-03-20] MEDS: ACETAMINOPHEN 500 MG TAB PO SCH ×2 (08:42→22:04)
[2023-03-20 16:29] LABS: BLOOD UREA NITROGEN 24 MG/DL (9-23); CALCIUM LEVEL 7.5 MG/DL (8.3-10.6); CARBON DIOXIDE LEVEL 23 MMOL/L (20-31); CHLORIDE LEVEL 112 MMOL/L (98-107); CREATININE FOR GFR 0.63 MG/DL (0.55-1.30); GLOMERULAR FILTRATION RATE > 60.0 (>32); GLUCOSE, FASTING 86 MG/DL (74-106); POTASSIUM SERUM 4.2 MMOL/L (3.5-5.1); SODIUM LEVEL 142 MMOL/L (136-145)
[2023-03-20] MEDS: NS 0.45% 1,000 ML IV SCH (17:06)
[2023-03-20] MEDS: COMBIVENT RESPIMAT 100-20MCG INHALER 4GM INH SCH (20:00)
[2023-03-20] MEDS ORDERED: NYSTATIN OINTMENT 15 GM TOP SCH (21:00)
[2023-03-20] MEDS ORDERED: ALBUTEROL 90 MCG/ACT 8GM HFA INHALER INH PRN (22:45)
[2023-03-20] MEDS: DOXYCYCLINE HYCLATE 100MG TABLET PO SCH (23:51)
[2023-03-20] MEDS: NYSTATIN 100,000 UNITS/GM TOPICAL PWD 15GM TOP SCH (23:52)
[2023-03-21] MEDS: COMBIVENT RESPIMAT 100-20MCG INHALER 4GM INH SCH ×4 (01:28→19:24)
[2023-03-21 02:30] VITALS: BP 149/77; TEMP 97.9; O2SAT 93
[2023-03-21] MEDS ORDERED: REMDESIVIR 100 MG in NS 250 ML IV SCH (03:00)
[2023-03-21] MEDS: NS 0.45% 1,000 ML IV SCH (05:05)
[2023-03-21 05:10] VITALS: BP 149/79; TEMP 97.9; O2SAT 92
[2023-03-21 05:11] VITALS: TEMP 96.4
[2023-03-21 06:36] LABS: BLOOD UREA NITROGEN 18 MG/DL (9-23); CALCIUM LEVEL 7.8 MG/DL (8.3-10.6); CARBON DIOXIDE LEVEL 23 MMOL/L (20-31); CHLORIDE LEVEL 110 MMOL/L (98-107); GLOMERULAR FILTRATION RATE > 60.0 (>32); GLUCOSE, FASTING 77 MG/DL (74-106); POTASSIUM SERUM 3.9 MMOL/L (3.5-5.1); SODIUM LEVEL 140 MMOL/L (136-145)
[2023-03-21] MEDS ORDERED: NIRMATRELVIR/RITONAVIR (RENAL) CO-PACK (EUA) PO SCH (09:00)
[2023-03-21] MEDS: ENOXAPARIN 40MG/0.4ML SYRINGE (J1650 PER 10MG) SC SCH (09:13)
[2023-03-21] MEDS: ACETAMINOPHEN 500 MG TAB PO SCH ×2 (09:13→20:31)
[2023-03-21] MEDS: DOXYCYCLINE HYCLATE 100MG TABLET PO SCH ×2 (09:13→20:29)
[2023-03-21] MEDS: NYSTATIN 100,000 UNITS/GM TOPICAL PWD 15GM TOP SCH ×2 (09:13→20:29)
[2023-03-21] MEDS: NIRMATRELVIR/RITONAVIR CO-PACK (EMERGENCY USE AUTH) PO SCH ×2 (13:28→20:30)
[2023-03-21] MEDS ORDERED: diphenhydrAMINE 50MG/ML VIAL IM STA (14:39)
[2023-03-21] MEDS ORDERED: HALOPERIDOL 5MG/ML 1ML VIAL IV PRN (14:40)
[2023-03-21] MEDS ORDERED: diphenhydrAMINE 25MG CAP PO PRN (14:45)
[2023-03-21] MEDS ORDERED: haloperidoL 0.5 MG TAB PO ONE (16:00)
[2023-03-21] MEDS ORDERED: diphenhydrAMINE 50MG/ML VIAL IM PRN (18:00)
[2023-03-21 18:48] LABS: BLOOD UREA NITROGEN 17 MG/DL (9-23); CALCIUM LEVEL 8.3 MG/DL (8.3-10.6); CARBON DIOXIDE LEVEL 27 MMOL/L (20-31); CHLORIDE LEVEL 106 MMOL/L (98-107); CREATININE FOR GFR 0.72 MG/DL (0.55-1.30); GLOMERULAR FILTRATION RATE > 60.0 (>32); GLUCOSE, FASTING 77 MG/DL (74-106); POTASSIUM SERUM 4.1 MMOL/L (3.5-5.1); SODIUM LEVEL 140 MMOL/L (136-145)
[2023-03-21 20:25] VITALS: BP 158/80; TEMP 98.1; O2SAT 96
[2023-03-21 20:26] VITALS: TEMP 97.7
[2023-03-22] MEDS: COMBIVENT RESPIMAT 100-20MCG INHALER 4GM INH SCH ×4 (01:37→21:23)
[2023-03-22 05:00] VITALS: BP 126/88; TEMP 98.5; O2SAT 96
[2023-03-22 06:27] LABS: HEMATOCRIT 43.4 % (36.0-47.0); MEAN CORPUSCULAR HEMOGLOBIN 29.1 pg (27.0-33.0); MEAN CORPUSCULAR HGB CONC 32.3 g/dl (32.0-36.5); MEAN CORPUSCULAR VOLUME 90.2 fl (80.0-96.0); PLATELET COUNT, AUTOMATED 180 10^3/uL (150-450); RED BLOOD COUNT 4.81 10^6/uL (4.00-5.40); WHITE BLOOD COUNT 6.1 10^3/uL (4.0-10.0)
[2023-03-22 06:59] LABS: BLOOD UREA NITROGEN 15 MG/DL (9-23); CALCIUM LEVEL 8.1 MG/DL (8.3-10.6); CARBON DIOXIDE LEVEL 24 MMOL/L (20-31); CHLORIDE LEVEL 106 MMOL/L (98-107); CREATININE FOR GFR 0.64 MG/DL (0.55-1.30); GLOMERULAR FILTRATION RATE > 60.0 (>32); GLUCOSE, FASTING 75 MG/DL (74-106); POTASSIUM SERUM 3.7 MMOL/L (3.5-5.1); SODIUM LEVEL 139 MMOL/L (136-145)
[2023-03-22] MEDS: NIRMATRELVIR/RITONAVIR CO-PACK (EMERGENCY USE AUTH) PO SCH ×2 (09:01→20:46)
[2023-03-22] MEDS: DOXYCYCLINE HYCLATE 100MG TABLET PO SCH ×2 (09:02→20:44)
[2023-03-22] MEDS: NYSTATIN 100,000 UNITS/GM TOPICAL PWD 15GM TOP SCH ×2 (09:02→20:44)
[2023-03-22] MEDS: ACETAMINOPHEN 500 MG TAB PO SCH ×2 (09:02→20:44)
[2023-03-22] MEDS: ENOXAPARIN 40MG/0.4ML SYRINGE (J1650 PER 10MG) SC SCH (09:02)
[2023-03-22] MEDS: haloperidoL 0.5 MG TAB PO PRN (09:12)
[2023-03-22 18:58] LABS: BLOOD UREA NITROGEN 19 MG/DL (9-23); CALCIUM LEVEL 8.8 MG/DL (8.3-10.6); CARBON DIOXIDE LEVEL 24 MMOL/L (20-31); CHLORIDE LEVEL 105 MMOL/L (98-107); CREATININE FOR GFR 0.86 MG/DL (0.55-1.30); GLOMERULAR FILTRATION RATE > 60.0 (>32); GLUCOSE, FASTING 116 MG/DL (74-106); POTASSIUM SERUM 3.8 MMOL/L (3.5-5.1); SODIUM LEVEL 136 MMOL/L (136-145)
[2023-03-23] MEDS: COMBIVENT RESPIMAT 100-20MCG INHALER 4GM INH SCH ×4 (01:22→19:57)
[2023-03-23 05:36] VITALS: BP 117/75; TEMP 97.5; O2SAT 98
[2023-03-23] MEDS: DOXYCYCLINE HYCLATE 100MG TABLET PO SCH ×2 (09:54→20:46)
[2023-03-23] MEDS: ACETAMINOPHEN 500 MG TAB PO SCH ×2 (09:54→20:46)
[2023-03-23] MEDS: ENOXAPARIN 40MG/0.4ML SYRINGE (J1650 PER 10MG) SC SCH (09:55)
[2023-03-23] MEDS: NIRMATRELVIR/RITONAVIR CO-PACK (EMERGENCY USE AUTH) PO SCH ×2 (09:56→20:48)
[2023-03-23] MEDS: NYSTATIN 100,000 UNITS/GM TOPICAL PWD 15GM TOP SCH ×2 (09:57→20:50)
[2023-03-24] MEDS: COMBIVENT RESPIMAT 100-20MCG INHALER 4GM INH SCH ×4 (01:19→20:34)
[2023-03-24 05:22] VITALS: BP 116/75; TEMP 98.4; O2SAT 98
[2023-03-24] MEDS: NIRMATRELVIR/RITONAVIR CO-PACK (EMERGENCY USE AUTH) PO SCH ×2 (08:56→21:41)
[2023-03-24] MEDS: ACETAMINOPHEN 500 MG TAB PO SCH ×2 (08:57→21:39)
[2023-03-24] MEDS: NYSTATIN 100,000 UNITS/GM TOPICAL PWD 15GM TOP SCH ×2 (08:57→21:39)
[2023-03-24] MEDS: DOXYCYCLINE HYCLATE 100MG TABLET PO SCH ×2 (08:57→21:39)
[2023-03-24] MEDS: ENOXAPARIN 40MG/0.4ML SYRINGE (J1650 PER 10MG) SC SCH (08:58)
[2023-03-24] MEDS: haloperidoL 0.5 MG TAB PO PRN (16:28)
[2023-03-25] MEDS: COMBIVENT RESPIMAT 100-20MCG INHALER 4GM INH SCH ×4 (01:32→19:53)
[2023-03-25 03:55] VITALS: BP 151/79; TEMP 97.9; O2SAT 97
[2023-03-25 06:09] LABS: HEMATOCRIT 42.3 % (36.0-47.0); HEMOGLOBIN 13.7 g/dl (12.0-15.5); MEAN CORPUSCULAR HEMOGLOBIN 29.5 pg (27.0-33.0); MEAN CORPUSCULAR HGB CONC 32.4 g/dl (32.0-36.5); PLATELET COUNT, AUTOMATED 200 10^3/uL (150-450); RED BLOOD COUNT 4.65 10^6/uL (4.00-5.40); WHITE BLOOD COUNT 6.7 10^3/uL (4.0-10.0)
[2023-03-25] MEDS: DOXYCYCLINE HYCLATE 100MG TABLET PO SCH (09:18)
[2023-03-25] MEDS: ACETAMINOPHEN 500 MG TAB PO SCH ×2 (09:19→19:41)
[2023-03-25] MEDS: ENOXAPARIN 40MG/0.4ML SYRINGE (J1650 PER 10MG) SC SCH (09:20)
[2023-03-25] MEDS: NYSTATIN 100,000 UNITS/GM TOPICAL PWD 15GM TOP SCH ×2 (09:20→20:08)
[2023-03-25] MEDS: NIRMATRELVIR/RITONAVIR CO-PACK (EMERGENCY USE AUTH) PO SCH ×2 (09:21→19:42)
[2023-03-25] MEDS: MUPIROCIN 2% OINT 22 GM TUBE TOP SCH (13:26)
[2023-03-25] MEDS: haloperidoL 0.5 MG TAB PO PRN (19:41)
[2023-03-26] MEDS: COMBIVENT RESPIMAT 100-20MCG INHALER 4GM INH SCH ×4 (01:11→19:19)
[2023-03-26 05:14] VITALS: BP 105/64; TEMP 97.9; O2SAT 96
[2023-03-26] MEDS: ENOXAPARIN 40MG/0.4ML SYRINGE (J1650 PER 10MG) SC SCH (08:56)
[2023-03-26] MEDS: ACETAMINOPHEN 500 MG TAB PO SCH ×2 (08:56→20:35)
[2023-03-26] MEDS: MUPIROCIN 2% OINT 22 GM TUBE TOP SCH (08:57)
[2023-03-26] MEDS: NYSTATIN 100,000 UNITS/GM TOPICAL PWD 15GM TOP SCH ×2 (08:57→20:36)
[2023-03-27 05:56] VITALS: BP 109/65; TEMP 97.9; O2SAT 96
[2023-03-27] MEDS: COMBIVENT RESPIMAT 100-20MCG INHALER 4GM INH SCH (07:48)
[2023-03-27] MEDS: ACETAMINOPHEN 500 MG TAB PO SCH (09:05)
[2023-03-27] MEDS: NYSTATIN 100,000 UNITS/GM TOPICAL PWD 15GM TOP SCH (09:05)
[2023-03-27] MEDS: ENOXAPARIN 40MG/0.4ML SYRINGE (J1650 PER 10MG) SC SCH (09:05)
[2023-03-27] MEDS: MUPIROCIN 2% OINT 22 GM TUBE TOP SCH (09:06)
== END 2023-03-27 11:20 | disposition other institution (70) | DRG 884 ==
LOC: M ED 17:41 → M ED INP 23:11 → ENRESERV 23:34 → M MSPAV 03-20 00:56
PROVIDERS: ADMIT Family Medicine; ATTEND General Practice
PROC: XW033E5 Introduction of Remdesivir Anti-infective into Peripheral Vein, Percutaneous Approach, New Technology Group 5 (ICD-10-PCS; principal; 2023-03-20)
DX: F03.911 Unspecified dementia, unspecified severity, with agitation (principal); U07.1 COVID-19; J44.9 Chronic obstructive pulmonary disease, unspecified; R62.7 Adult failure to thrive; L08.9 Local infection of the skin and subcutaneous tissue, unspecified; B35.4 Tinea corporis; Z66 Do not resuscitate; I10 Essential (primary) hypertension; Z96.642 Presence of left artificial hip joint; Z87.891 Personal history of nicotine dependence; Z79.2 Long term (current) use of antibiotics; Z79.899 Other long term (current) drug therapy; Z88.0 Allergy status to penicillin; Z88.2 Allergy status to sulfonamides